=== PATIENT | male | born 1970 | race Caucasian/White ===

== ENCOUNTER 2018-07-18 13:21 | Emergency (ER) | payer OTHER ==
[2018-07-18 13:37] VITALS: BP 145/95
--- NOTE | 2018-07-18 13:42 | UC ---
Ear Complaint HPI - HPI Summary HPI Summary: 48-year-old male presents with 2 separate and unrelated complaints. His first complaint is of persistent left ear pain with ringing in the ear. States he was seen by his primary care provider approximately one month ago for bilateral ear pain and was treated for a bilateral ear infection with a course of amoxicillin. States that that time he was also having some upper respiratory symptoms including nasal congestion, runny nose, mild sore throat, and nonproductive cough. States his URI symptoms and right ear improved with the antibiotics however the left ear pain has persisted and over the past week he has developed some tinnitus. Patient's second complaint is of persistent redness and swelling to his upper and lower right eyelids. States first noticed this about 6 months ago and he was evaluated at Dr. Diamond's office and was prescribed antibiotic eyedrops and recommended to do warm compresses. States he did notice a little bit of improvement with the antibiotic eyedrops but never completely resolved. States the lesion on his lower lid developed a white bump yesterday that has since resolved. Denies fever, chills, visual disturbances, eye redness, eye drainage, ear drainage, vertigo, nasal congestion , sore throat, or cough. - History of Current Complaint Chief Complaint: UCEye Stated Complaint: EAR/EYE PAIN Time Seen by Provider: 07/18/18 13:28 Hx Obtained From: Patient Pain Intensity: 8 - Allergies/Home Medications Allergies/Adverse Reactions: Allergies Allergy/AdvReac Type Severity Reaction Status Date / Time No Known Allergies Allergy Verified 06/25/12 16:50 PMH/Surg Hx/FS Hx/Imm Hx Psychological History: Other - ADHD - Surgical History Surgical History: Yes Surgery Procedure, Year, and Place: [facility] 2002 - Family History Known Family History: Positive: Non-Contributory - Social History Occupation: Employed Full-time Lives: With Family Alcohol Use: Occasionally Substance Use Type: None Smoking Status (MU): Never Smoked Tobacco Review of Systems All Other Systems Reviewed And Are Negative: Yes Constitutional: Negative: Fever, Chills Skin: Negative: Rash Eyes: Positive: Other - See HPI. Negative: Drainage, Eye Redness ENT: Positive: Ear Ache. Negative: Sore Throat, Nasal Discharge, Sinus Congestion, Sinus Pain/Tenderness Respiratory: Negative: Shortness Of Breath, Cough Cardiovascular: Negative: Palpitations, Chest Pain Gastrointestinal: Positive: Negative Genitourinary: Positive: Negative Musculoskeletal: Positive: Negative Neurological: Positive: Negative Is Patient Immunocompromised?: No Physical Exam - Summary Physical Exam Summary: GENERAL APPEARANCE: Well developed, well nourished, alert and cooperative, and appears to be in no acute distress. EYES: Conjunctiva clear. No drainage. PERRL, EOM intact. Vision is grossly intact. Hodeolum of the right upper and lower lids with crusting of the lower lesion. EARS: External auditory canals clear. Non-erythematous bilateral TMs with a fluid level and air bubbles behind the left TM. Hearing grossly intact. NOSE: No nasal discharge. THROAT: Pharynx normal No tonsilar inflammation, swelling, exudate, or lesions. Uvula midline. NECK: Neck supple, non-tender without lymphadenopathy. CARDIAC: Normal S1 and S2. No S3, S4 or murmurs. Rhythm is regular. There is no peripheral edema, cyanosis or pallor. Extremities are warm and well perfused. Capillary refill is less than 2 seconds. Peripheral pulses intact. LUNGS: Clear to auscultation without rales, rhonchi, wheezing or diminished breath sounds. ABDOMEN: Positive bowel sounds. Soft, nondistended, nontender. No guarding or rebound. No masses or hepatosplenomegally. MUSKULOSKELETAL: ROM intact to all extremities. No joint erythema or tenderness. Normal muscular development. Normal gait. SKIN: Skin normal color, texture and turgor with no lesions or eruptions. Triage Information Reviewed: Yes Vital Signs: Initial Vital Signs Temp 97 F 07/18/18 13:28 Pulse 83 07/18/18 13:28 Resp 16 07/18/18 13:28 BP 145/95 07/18/18 13:28 Pulse Ox 99 07/18/18 13:28 Vital Signs Reviewed: Yes Ear Complaint Course/Dx - Course Course Of Treatment: 48-year-old male presents with 2 separate and unrelated complaints. His first complaint is of persistent left ear pain with ringing in the ear. States he was seen by his primary care provider approximately one month ago for bilateral ear pain and was treated for a bilateral ear infection with a course of amoxicillin. States that that time he was also having some upper respiratory symptoms including nasal congestion, runny nose, mild sore throat, and nonproductive cough. States his URI symptoms and right ear improved with the antibiotics however the left ear pain has persisted and over the past week he has developed some tinnitus. Patient's second complaint is of persistent redness and swelling to his upper and lower right eyelids. States first noticed this about 6 months ago and he was evaluated at Dr. Diamond's office and was prescribed antibiotic eyedrops and recommended to do warm compresses. States he did notice a little bit of improvement with the antibiotic eyedrops but never completely resolved. States the lesion on his lower lid developed a white bump yesterday that has since resolved. Denies fever, chills, visual disturbances, eye redness, eye drainage, ear drainage, vertigo, nasal congestion , sore throat, or cough. Afebrile. Mildly hypertensive otherwise vital signs stable. Exam was remarkable for a hordeolum of both the upper and lower right eyelids with some crusting noted to the lesion of the lower lid, non- erythematous TMs with a fluid level and air bubbles behind the left TM. I am recommending treatment for a left serous otitis with fluticasone nasal spray 2 sprays each nostril once daily and have given him a referral to ENT. I have recommended that the patient follow-up at Dr. Lanre Diamond's office since they had already evaluated him for the hordeolums however patient states he was not satisfied with the care he received there and that he will arrange for his own follow-up with ophthalmology. I am going to place him on Polytrim eyedrops 1 drop 4 times a day 5 days and recommend that he do warm moist compresses as well as daily washing of the eyelids using a non-tearing baby shampoo. Anticipatory guidance and warning symptoms were reviewed with the patient. Verbalizes understanding and agrees with plan of care. - Differential Dx/Diagnosis Differential Diagnosis/HQI/PQRI: Cerumen Impaction, Otitis Externa, Otitis Media , Perforated TM, URI Provider Diagnosis: Left serous otitis media, Hordeolum externum right upper eyelid, Hordeolum of right lower eyelid Discharge - Sign-Out/Discharge Documenting (check all that apply): Patient Departure All imaging exams completed and their final reports reviewed: No Studies - Discharge Plan Condition: Stable Disposition: HOME Prescriptions: Fluticasone NASAL SPRAY 50MCG* [Flonase NASAL SPRAY 50MCG*] 2 spray BOTH NARES DAILY #1 btl Polymyx/Trimethoprim OPTH* [Polytrim OPHTH*] 1 drop RIGHT EYE QID #1 btl Patient Education Materials: Stye (ED), Serous Otitis Media (ED) Referrals: Naren Malloy MD [Primary Care Provider] - Ambrocio Moreno MD [Medical Doctor] - 5 Days (Follow up within 5-7 days for evaluation and treatment. Call for appointment.) Additional Instructions: There was no evidence of an infection in the ear on your exam today. You do have some fluid behind the ear consistent with a condition called serous otitis media likely due to some eustachian tube dysfunction. We will start you on fluticasone nasal spray 2 sprays each nostril once a day to try to reduce any swelling and promote drainage. Take acetaminophen (Tylenol) or ibuprofen (Advil, Motrin) according to directions as needed for pain. The red spots on your eyelids appear to be styes. Considering that they have persisted since you were first evaluated and treated I would recommend that you follow up with ophthalmology for re-assessment of the symptoms. Start Polytrim ophthalmic 1 drop into the affected eye 4 times a day for 5 days. Use a warm moist compress to the eye for 15 minutes at least 4 times a day. Try washing the eyelids with a baby shampoo once a day to help clear any debris that may be clogging the oil glands. Your blood pressure was elevated in the clinic today. It is recommended that you follow up with your primary care provider within 4 weeks to have this rechecked. - Billing Disposition and Condition Condition: STABLE Disposition: Home
== END 2018-07-18 14:16 | disposition home or self-care (01) ==
LOC: UCEAST 13:21
DX: H65.92 Unspecified nonsuppurative otitis media, left ear (principal); H00.011 Hordeolum externum right upper eyelid; H00.012 Hordeolum externum right lower eyelid
CPT/HCPCS: 99202; G0463